=== PATIENT | male | born 1995 | race Caucasian/White ===

== ENCOUNTER 2025-09-21 13:00 | Outpatient (CLI) | payer OTHER, SELFPAY | END 2025-09-21 13:01 | disposition home or self-care (01) | PROVIDERS: Visit Provider Family Medicine | DX: Z00.00 Encounter for general adult medical examination without abnormal findings (principal); R03.0 Elevated blood-pressure reading, without diagnosis of hypertension; Z83.49 Family history of other endocrine, nutritional and metabolic diseases | CPT/HCPCS: 80053; 80061; 82728; 83540 ==